=== PATIENT | male | born 1940 | race Caucasian/White ===

== ENCOUNTER 2019-05-28 08:54 | Outpatient (CLI) | payer MEDICARE, SELFPAY ==
--- NOTE | ~2019-05-28 | CT_ITS ---
EXAMINATION:CT chest w con DATE: 05/28/2019 09:26 INDICATION: Left chest mass. TECHNIQUE: Computed tomography (CT) of the chest was performed with 75 mL Omnipaque 350 intravenous c ontrast. Automated exposure control and iterative reconstruction technique were employed. The dose-le ngth product (DLP) was 273.45 mGy-cm. COMPARISON: None. FINDINGS: In the left lung upper lobe, there is a 13.0 x 11.1 x 14.5 cm mass with extensive chest wal l involvement including erosion of the left first, second, and third ribs. There is mild atelectasis bilaterally. A calcified right lung nodule and calcified right hilar and mediastinal lymph nodes are consistent with old granulomatous disease. No pleural effusion. The heart size is normal. There are c oronary artery calcifications. No pericardial effusion. There is a small sliding hiatal hernia. There are gallstones in the gallbladder, which is normal in size. There is severe cervical spondylosis and mild thoracic spondylosis. IMPRESSION: 1. 14.5 cm mass in left lung upper lobe with chest wall involvement, consistent with primary bronchog enic carcinoma. Ultrasound-guided core needle biopsy is recommended. I called this result to Dr. Yecenia nicole on 05/28/19 at 10:14 AM. Reviewed, dictated and finalized at location A. IMPRESSION: 1. 14.5 cm mass in left lung upper lobe with chest wall involvement, consistent with primary bronchogenic carcinoma. Ultrasound-guided core needle biopsy is r ecommended. I called this result to Dr. Thibodeaux on 05/28/19 at 10:14 AM.
[2019-05-28 09:23] LABS: Estimated Glomerular Filt Rate > 60
== END 2019-05-28 08:55 | disposition home or self-care (01) ==
PROVIDERS: PCP Internal Medicine; Visit Provider Internal Medicine
DX: R22.2 Localized swelling, mass and lump, trunk (principal)
CPT/HCPCS: 36415; 71260; Q9967

== ENCOUNTER 2019-05-29 10:32 | Outpatient (CLI) | payer MEDICARE, SELFPAY ==
--- NOTE | ~2019-05-29 | US_ITS ---
EXAMINATION: US biopsy st neck thorax DATE: 05/29/2019 11:41 INDICATION: Left chest wall mass. TECHNIQUE: The procedure including the risks, benefits, and alternatives was discussed with the patie nt. Risks discussed included bleeding and infection. The patient understood the risks and agreed to p roceed. The skin overlying the chest was prepped and draped in usual sterile fashion. Anesthetic was administered with 1% lidocaine subcutaneously. An 18 gauge core biopsy needle was then used to obta in 3 core biopsy specimens under continuous sonographic guidance. The entry site was cleaned and dres sed. There were no immediate complications. FINDINGS: Ultrasound images demonstrate the needle in a 14 cm mass involving left chest wall and left lung. IMPRESSION: 1. Ultrasound-guided core needle biopsy of a left chest wall mass. Reviewed, dictated and finalized at location A.
== END 2019-05-29 10:33 | disposition home or self-care (01) ==
PROVIDERS: PCP Internal Medicine; Visit Provider Internal Medicine
DX: C44.599 Other specified malignant neoplasm of skin of other part of trunk (principal)
CPT/HCPCS: 20206; 76942; 88305; 88307; 88342